=== PATIENT | male | born 1975 | race Caucasian/White ===

== ENCOUNTER 2019-01-31 07:06 | Emergency (ER) | payer BC ==
--- OUTSIDE RECORDS SUMMARY | 2019-01-31 07:13 | XMS REPORT | Continuity of Care Document ---
:1975 External Reference #:[id number] Author Name StefanoManueldonavan Care Team Providers Name Role Phone Estrada Porras MD Primary Care Physician Unavailable Payers Date Identification Numbers Payment Provider Subscriber Policy Number: [id number] [employer] Jonathan Cuevas PayID: [id number] [address] [address] [place] [address] Advance Directives Description No Information Available Problems Date Description Provider Status Onset: 01/17/2019 Localized, primary osteoarthritis Cristiana Luis M.D. Active Family History Date Family Member(s) Observation Comments General Heart Disease General Cancer Social History Type Date Description Comments Sex Unknown Lives With ETOH Use Occasionally consumes alcohol Tobacco Use Start: Unknown Patient has never smoked Smoking Status Reviewed: 01/17/19 Patient has never smoked Exercise Type/Frequency Exercises regularly Allergies, Adverse Reactions, Alerts Date Description Reaction Status Severity Comments 06/14/2014 Indomethacin GI Upset Active 05/30/2014 NKDA Inactive Medications Medication Date Status Form Strength Qnty SIG Indications Ordering Provider Meloxicam 01/17/ Active Tablets 15mg 14tabs 1 by M25.561 Cristiana 2019 akil Luis every day Hector Montelukast / Active Tablets 10mg 30tabs 1 by Unknown Sodium 0000 mouth every day Levothyroxine / Active Tablets 50mcg Take One Unknown Sodium 0000 Tablet By Mouth Every Day Pantoprazole / Active Tablets DR 20mg Take Two Unknown Sodium 0000 Tablets By Mouth Every Day Diclofenac 02/07/ Hx Tablets DR 75mg 60tabs take 1 M75.42 Zaneb Sodium 2016 - tablet MD Adolfo 01/16/ twice a 2019 day with food Lamotrigine 06/14/ Hx Tablets 25mg 120tab 1 po qhs Roque Frazier 2013 - s for 1 wk Jose, then 2 M.D. 2018 qhs for 1 wk then 3 qhs for 1 wk then 4 qhs Indomethacin 05/30/ Hx Capsules 50mg 90caps 1 by Roque Frazier 2013 - mouth bid Jose, 05/19/ for 1 wk M.DIhsan 2013 then 1 tid Levothyroxine / Hx Tablets 25mcg 90tabs 1 by Unknown Sodium 0000 - mouth 01/16/ every day 2018 Pantoprazole / Hx Tablets DR 20mg 90tabs 1 by Unknown Sodium 0000 - mouth every day 2018 Butalbital/Acet / Hx Tablets 50-325-40m 20tabs 2 tablets Unknown aminophen/Caffe 0000 - g by mouth ine prn 2018 Acetaminophen-C / Hx Tablets 300-30mg 30tabs 2 tabs po Unknown odeine #3 0000 - daily prn 2018 Medications Administered in Office Medication Date Status Form Strength Qnty SIG Indications Ordering Provider Triamcinolone 02/07/ Administered Injection Zaneb (Kenalog) 2015 MD Adolfo Immunizations Description No Information Available Vital Signs Date Vital Result Comment 01/17/2019 10:08am Height 73.25 inches 6'1.25" Weight 238.00 lb Heart Rate 52 /min BP Systolic 120 mmHg BP Diastolic 76 mmHg Pain Level 7 BMI (Body Mass Index) 31.2 kg/m2 03/18/2016 3:25pm Height 72 inches 6'0" Weight 229.00 lb Heart Rate 60 /min Respiratory Rate 16 /min Pain Level 6 BMI (Body Mass Index) 31.1 kg/m2 02/08/2016 9:44am Height 72 inches 6'0" Weight 229.00 lb Heart Rate 68 /min BP Systolic Sitting 128 mmHg BP Diastolic Sitting 74 mmHg Respiratory Rate 16 /min Pain Level 8 BMI (Body Mass Index) 31.1 kg/m2 06/14/2014 4:30pm Height 73.5 inches 6'1.50" Weight 235.00 lb Heart Rate 64 /min BP Systolic Sitting 110 mmHg BP Diastolic Sitting 76 mmHg Respiratory Rate 16 /min BMI (Body Mass Index) 30.6 kg/m2 05/30/2014 9:14am Height 73.5 inches 6'1.50" Weight 233.00 lb Heart Rate 60 /min BP Systolic Sitting 118 mmHg BP Diastolic Sitting 78 mmHg Respiratory Rate 12 /min BMI (Body Mass Index) 30.3 kg/m2 Results Description No Information Available Procedures Date Code Description Status 02/08/2016 02683 Inject/Drain Joint/Bursa Major W/O US Completed 11/15/2015 68808 Stress Test Completed Encounters Type Date Location Provider Dx Diagnosis Office Visit 03/18/2016 [facility] Varun Mata MD M75.42 Imp[facility] 3[facility] syndrome of left shoulder M75.22 Bicipital tendinitis, left shoulder Office Visit 02/08/2016 9:30a [facility] Luke Riley.42 [facility] shoulder M75.22 Bicipital tendinitis, left shoulder Office Visit 06/14/2014 3:45p Haja Frazier 339.41 [facility] M[facility] Office Visit 05/30/2014 9:15a [facility] Plan of Treatment Future Appointment(s):01/31/2019 8:30 am - Cristiana Luis M.D. at [facility]01/17/2019 - Cristiana Luis M.D.M25.561 Pain in right kneeNew Medication:Meloxicam 15 mg - 1 by mouth every dayNew Therapy:Physical TherapyFollow up:Follow up: 2 njljvS78.461 Effusion, right kneeM17.11 Unilateral primary osteoarthritis, right kneeM76.31 Iliotibial band syndrome, right legS83.421A Sprain of lateral collateral ligament of right knee, initial
--- NOTE | 2019-01-31 08:56 | UC ---
Abdominal Pain Male HPI - HPI Summary HPI Summary: 43 yo male woke at 1AM with epigastic pain radiating to right back since then the back pain has been most prominent tossed/turned and paced all night no nausea/vomiting/diarrrhea no cp or sob no fever/chills - History of Current Complaint Chief Complaint: UCAbdominalPain Stated Complaint: ABD PAIN Time Seen by Provider: 01/31/19 07:34 Hx Obtained From: Patient Onset/Duration: Sudden Onset, Lasting Hours Timing: Constant Severity Initially: Moderate Severity Currently: Moderate Pain Intensity: 8 Pain Scale Used: 0-10 Numeric Location: Epigastric Radiates to: Back - right CVA Character: Colicy Aggravating Factor(s): Nothing Alleviating Factor(s): Nothing Associated Signs And Symptoms: Negative: Diaphoresis, Fever, Cough, Chest Pain, Dizzy, Back Pain, Constipation, Blood in Stool, Urinary Symptoms, Decreased Appetite, Nausea, Vomiting, Diarrhea, Penile Discharge Male Torso: 1 - pain 2 - pain - Allergies/Home Medications Allergies/Adverse Reactions: Allergies Allergy/AdvReac Type Severity Reaction Status Date / Time indomethacin Allergy Dizziness Verified 01/31/19 07:20 Home Medications: Home Medications Pantoprazole Sodium [Protonix] 40 mg PO DAILY 01/31/19 [History Confirmed ] PMH/Surg Hx/FS Hx/Imm Hx Previously Healthy: Yes Endocrine History: Thyroid Disease GI/ History: Gastroesophageal Reflux - Surgical History Surgical History: Yes Surgery Procedure, Year, and Place: decompression surgery -left shoulder - Social History Alcohol Use: Rare Substance Use Type: None Smoking Status (MU): Never Smoked Tobacco Have You Smoked in the Last Year: No Review of Systems All Other Systems Reviewed And Are Negative: Yes Constitutional: Positive: Negative Skin: Positive: Negative Eyes: Positive: Negative ENT: Positive: Negative Respiratory: Positive: Negative Cardiovascular: Positive: Negative Gastrointestinal: Positive: Abdominal Pain Genitourinary: Positive: Negative Motor: Positive: Negative Neurovascular: Positive: Negative Musculoskeletal: Positive: Myalgia - right mid back Neurological: Positive: Negative Psychological: Positive: Negative Physical Exam Triage Information Reviewed: Yes Appearance: Well-Appearing, No Pain Distress, Well-Nourished Vital Signs: Initial Vital Signs Temp 97.9 F 01/31/19 07:15 Pulse 55 01/31/19 07:15 Resp 18 01/31/19 07:15 BP 144/97 01/31/19 07:15 Pulse Ox 99 01/31/19 07:15 Vital Signs Reviewed: Yes Eyes: Positive: Conjunctiva Clear ENT: Positive: Hearing grossly normal. Negative: Nasal congestion, TMs normal, Tonsillar swelling, Tonsillar exudate, Dental tenderness, Sinus tenderness Neck: Positive: Supple, Nontender, No Lymphadenopathy Respiratory: Positive: Chest non-tender, Lungs clear, Normal breath sounds, No respiratory distress, No accessory muscle use Cardiovascular: Positive: RRR, No Murmur Abdomen Description: Positive: Nontender, No Organomegaly, Soft. Negative: CVA Tenderness (R), CVA Tenderness (L) Bowel Sounds: Positive: Present Musculoskeletal: Positive: ROM Intact, No Edema Neurological: Positive: Alert Psychological Exam: Normal Skin Exam: Normal Diagnostics - Radiology No standard instances Radiology Interpretation Completed By: Radiologist Summary of Radiographic Findings: IMPRESSION: #. Negative for urolithiasis or hydronephrosis. #. Normal appendix documented. #. No acute abdominal pelvic pathologic process evident. - EKG Cardiac Rate: Bradycardia Cardiac Rhythm: Sinus: Normal Ectopy: None ST Segment: Normal Re-Evaluation - Re-Evaluation First Eval Re-Evaluation Time: 10:19 Change: Improved - abd pain resolved , exam remaons benign Abd Pain Male Course/Dx - Course Course Of Treatment: no abd pain at time of d/c mild back pain which patient states is normal for him - Differential Dx/Clinical Impression Provider Diagnosis: Abdominal pain of unknown cause Discharge - Sign-Out/Discharge Documenting (check all that apply): Patient Departure All imaging exams completed and their final reports reviewed: Yes - Discharge Plan Condition: Stable Disposition: HOME Prescriptions: Omeprazole 20 mg PO DAILY #14 tablet.dr Patient Education Materials: Acute Abdominal Pain (ED) Referrals: Estrada Porras MD [Primary Care Provider] - 1 Week Additional Instructions: I am unsure of the cause of your abd pain avoid things like advil or aleve for now recheck if symptoms recur or new symptoms develop TO ER IF: you develop chest pain or shortness of breath you develop a fever vomiting - Billing Disposition and Condition Condition: STABLE Disposition: Home
[2019-01-31] MEDS ORDERED: Lidocaine 2% VISCOUS* 15 ML UDC PO ONE (09:25)
[2019-01-31] MEDS ORDERED: Al Hydrox/Mg Hydrox/Simet LIQ* 30 ML UDC PO ONE (09:25)
[2019-01-31 10:14] VITALS: BP 153/88
== END 2019-01-31 10:25 | disposition home or self-care (01) ==
LOC: UCEAST 07:06
DX: R10.13 Epigastric pain (principal); M54.9 Dorsalgia, unspecified; R31.9 Hematuria, unspecified; Z88.6 Allergy status to analgesic agent; E07.9 Disorder of thyroid, unspecified; K21.9 Gastro-esophageal reflux disease without esophagitis
CPT/HCPCS: 74176; 81003; 99212; A9270-GY; G0463